=== PATIENT | female | born 1970 | race Caucasian/White ===

== ENCOUNTER 2021-12-01 08:08 | Day surgery (SDC) | payer OTHER ==
[~2021-12-01 08:08] MED LIST: Sodium Chloride 0.9% 10 ML Syringe FLUSH PRN
[2021-12-01] MEDS ORDERED: Propofol 200 MG/20 ML SDV IV ONE (08:09)
[2021-12-01] MEDS ORDERED: Glucagon,Human Recombinant 1 MG Vial IM ONE (08:09)
[2021-12-01] MEDS: Lactated Ringers 1,000 ML IV SCH (08:40)
[2021-12-01 10:46] VITALS: BP 113/59; PULSE 96
== END 2021-12-01 11:21 | disposition home or self-care (01) ==
LOC: FB.SDS 08:08
PROVIDERS: ATTEND Surgery
DX: Z12.11 Encounter for screening for malignant neoplasm of colon (principal); F32.A Depression, unspecified; E11.9 Type 2 diabetes mellitus without complications; E66.01 Morbid (severe) obesity due to excess calories; Z88.2 Allergy status to sulfonamides; Z79.84 Long term (current) use of oral hypoglycemic drugs; Z79.899 Other long term (current) drug therapy; Z80.0 Family history of malignant neoplasm of digestive organs; Z68.37 Body mass index [BMI] 37.0-37.9, adult
CPT/HCPCS: 00812-QZ; J1610; J2704; J7120